=== PATIENT | female | born 1950 | race Hispanic/Latino ===

== ENCOUNTER 2018-01-28 03:01 | Observation (INO) | payer OTHER ==
[~2018-01-28] VITALS: Ht 157.5 cm; Wt 73.6 kg
[2018-01-28 04:52] VITALS: BP 130/66
[2018-01-28] MEDS ORDERED: LABETALOL 20 MG/4 ML DISP.SYRIN IV PRN (06:00)
[2018-01-28] MEDS ORDERED: NITROGLYCERIN 0.4 MG SL TAB SL PRN (06:00)
[2018-01-28] MEDS ORDERED: ACETAMINOPHEN 325 MG TAB PO PRN (06:00)
[2018-01-28] MEDS ORDERED: ONDANSETRON HCL MDV 20ML 2 MG/ML VIAL IVP PRN (06:00)
[2018-01-28] MEDS ORDERED: MORPHINE SULFATE 2 MG/ML 1ML SYG IVP PRN (06:00)
[2018-01-28] MEDS ORDERED: HYDROCODONE/ACETAMINOPHEN 5/325 MG TAB PO PRN (06:00)
[2018-01-28] MEDS ORDERED: SODIUM CHLORIDE 0.9% 1000ML 1,000 ML IV SCH (06:00)
[2018-01-28 06:49] LABS: HEMATOCRIT 36.1 % (36-48); MEAN CORPUSCULAR HGB CONC 33.2 g/dL (32.0-36.0); MEAN CORPUSCULAR VOLUME 87.5 fL (79-99); PLATELET COUNT (AUTO) 182 K/uL (130-400); RED BLOOD CELL COUNT(AUTO) 4.13 MIL/uL (4.00-5.50); RED CELL DISTRIBUTION WIDTH 13.9 % (11.0-15.5); WHITE BLOOD COUNT (AUTO) 4.6 K/uL (4.8-10.8)
[2018-01-28 07:14] LABS: CARBON DIOXIDE 29 mmol/L (21-32); CHLORIDE 107 mmol/L (101-111); CHOLESTEROL 168 mg/dL (<200); CREATINE KINASE, TOTAL 40 U/L (21-232); CREATININE 0.8 mg/dL (0.5-1.5); GLOMERULAR FILTR. RATE CALC 76 mL/min (>60); GLUCOSE,RANDOM 106 mg/dL (70-105); HDL CHOLESTEROL 58 mg/dL (35-85); LDL DIRECT 99 mg/dL (0-99); MYOGLOBIN 29 ng/mL (10-92); POTASSIUM 3.7 mmol/L (3.5-5.1); SODIUM SERUM 143 mmol/L (136-145); TRIGLYCERIDES 43 mg/dL (30-200); TROPONIN I < 0.04 ng/mL (0.00-0.06); UREA NITROGEN, BLOOD 17 mg/dL (7-18)
[2018-01-28 07:44] VITALS: BP 109/49
[2018-01-28] MEDS ORDERED: ASPIRIN 81MG TAB.CHEW PO SCH (09:00)
[2018-01-28] MEDS ORDERED: METOPROLOL TARTRATE 25 MG TAB PO SCH (09:00)
[2018-01-28 11:03] LABS: CREATINE KINASE, TOTAL 36 U/L (21-232); MYOGLOBIN 29 ng/mL (10-92); TROPONIN I < 0.04 ng/mL (0.00-0.06)
[2018-01-28 11:35] VITALS: BP 141/52
[2018-01-28] MEDS ORDERED: REGADENOSON 0.4 MG/5 ML PF SYG IVP SCH (14:45)
[2018-01-28 17:00] VITALS: BP 126/66
[2018-01-28 18:47] LABS: CREATINE KINASE, TOTAL 36 U/L (21-232); MYOGLOBIN 29 ng/mL (10-92); TROPONIN I < 0.04 ng/mL (0.00-0.06)
[2018-01-28] MEDS ORDERED: PANT40TA25 PO (18:55)
[2018-01-28] MEDS ORDERED: ATORVASTATIN CALCIUM 40 MG TABLET PO SCH (21:00)
== END 2018-01-28 19:30 | disposition home or self-care (01) ==
LOC: 2AH 04:31 → INTOOBSV 04:31
PROVIDERS: ADMIT Internal Medicine Critical Care Medicine; ATTEND Internal Medicine Critical Care Medicine
DX: I20.0 Unstable angina (principal); E11.9 Type 2 diabetes mellitus without complications; K21.9 Gastro-esophageal reflux disease without esophagitis; Z86.73 Personal history of transient ischemic attack (TIA), and cerebral infarction without residual deficits; Z90.710 Acquired absence of both cervix and uterus
CPT/HCPCS: 36415; 78452; 80048; 80061; 82550 ×3; 83874 ×3; 84484 ×3; 85027; 93005; 93017; A9500 ×2; G0378 ×16; J2785; 96374

== ENCOUNTER 2021-03-09 18:43 | Inpatient (IN) | payer OTHER ==
[~2021-03-09] VITALS: Ht 157.5 cm; Wt 75.7 kg
[~2021-03-09 18:43] MED LIST: PANT40TA54 PO
[2021-03-09 20:43] LABS: BASOPHILS % (AUTO) 1.1 % (0.0-5.0); EOSINOPHILS % (AUTO) 2.3 % (0.0-8.0); HEMATOCRIT 41.4 % (36-48); LYMPHOCYTES % (AUTO) 32.3 % (21.0-51.0); MEAN CORPUSCULAR HEMOGLOBIN 27.4 pg (27.0-33.0); MEAN CORPUSCULAR HGB CONC 31.9 g/dL (32.0-36.0); MEAN CORPUSCULAR VOLUME 86.1 fL (79-99); MONOCYTES % (AUTO) 9.8 % (3.0-13.0); NEUTROPHILS % (AUTO) 54.3 % (40.0-77.0); PLATELET COUNT (AUTO) 241 K/uL (130-400); RED BLOOD CELL COUNT(AUTO) 4.81 MIL/uL (4.00-5.50); RED CELL DISTRIBUTION WIDTH 14.6 % (11.0-15.5); WHITE BLOOD COUNT (AUTO) 5.2 K/uL (4.8-10.8)
[2021-03-09 20:54] LABS: CREATININE 0.8 mg/dL (0.5-1.5); POTASSIUM 4.1 mmol/L (3.5-5.1)
[2021-03-09 20:59] LABS: ALBUMIN 3.7 g/dL (3.5-5.0); BILIRUBIN,TOTAL 0.2 mg/dL (0.2-1.0); TOTAL PROTEIN, SERUM 7.4 g/dL (6.0-8.3)
[2021-03-09] MEDS ORDERED: SOLU-MEDROL 125MG VIAL IV ONE (22:30)
[2021-03-09] MEDS ORDERED: ONDANSETRON 4MG INJ IV PRN (22:30)
[2021-03-09] MEDS ORDERED: HYDRALAZINE 20MG/ML VIAL IV PRN (22:30)
[2021-03-09 22:41] LABS: APPEARANCE,URINE Clear (CLEAR); BILIRUBIN,URINE Negative (NEGATIVE); COLOR,URINE Yellow (YELLOW); GLUCOSE, URINE (UA) Negative (NEGATIVE); KETONES,URINE Negative (NEGATIVE); LEUKOCYTE ESTERASE ,URINE Trace (NEGATIVE); NITRATE,URINE Negative (NEGATIVE); OCCULT BLOOD,URINE Negative (NEGATIVE); PH,URINE 7.5 (5.0-8.0); PROTEIN,URINE Negative (NEGATIVE); UROBILINOGEN,URINE 0.2 mg/dL (0.2-1.0)
[2021-03-09 22:50] LABS: AMPHET/METH SCREEN,URINE NEGATIVE (NEGATIVE); BACTERIA,URINE None Seen /HPF (None Seen); BARBITURATE SCREEN, URINE NEGATIVE (NEGATIVE); BENZODIAZEPINES SCREEN,URINE NEGATIVE (NEGATIVE); CANNABINOID SCREEN,URINE NEGATIVE (NEGATIVE); COCAINE SCREEN,URINE NEGATIVE (NEGATIVE); OPIATE SCREEN,URINE NEGATIVE (NEGATIVE); PHENCYCLIDINE SCREEN,URINE NEGATIVE (NEGATIVE); RBC,URINE None Seen /HPF (0-1); SQUAMOUS EPITHELIAL CELL,UR Rare /HPF (0-2); WBC,URINE 0-1 /HPF (0-1)
[2021-03-09 22:57] LABS: INR 0.94 (0.85-1.15); PROTHROMBIN TIME 10.3 SEC (9.6-11.6)
[2021-03-09 22:58] LABS: PARTIAL THROMBOPLASTIN TIME 25.4 SEC (26.3-35.5)
[2021-03-09 22:59] LABS: CHOLESTEROL 220 mg/dL (<200); HDL CHOLESTEROL 43 mg/dL (35-85); LDL DIRECT 126 mg/dL (0-99); TRIGLYCERIDES 224 mg/dL (30-200)
[2021-03-10] MEDS ORDERED: SOLU-MEDROL 125MG VIAL ONE (00:50)
[2021-03-10] MEDS: LACTATED RINGERS 1000ML 1,000 ML IV SCH ×2 (00:53→08:30)
[2021-03-10 03:34] VITALS: BP 161/62
[2021-03-10] MEDS ORDERED: TRAM50TA4 PO (05:14)
[2021-03-10 05:28] LABS: BASOPHILS % (AUTO) 0.4 % (0.0-5.0); EOSINOPHILS % (AUTO) 0.4 % (0.0-8.0); LYMPHOCYTES % (AUTO) 12.8 % (21.0-51.0); MEAN CORPUSCULAR HEMOGLOBIN 27.5 pg (27.0-33.0); MEAN CORPUSCULAR VOLUME 83.3 fL (79-99); MONOCYTES % (AUTO) 1.6 % (3.0-13.0); NEUTROPHILS % (AUTO) 84.6 % (40.0-77.0); PLATELET COUNT (AUTO) 242 K/uL (130-400); RED CELL DISTRIBUTION WIDTH 14.2 % (11.0-15.5); WHITE BLOOD COUNT (AUTO) 5.1 K/uL (4.8-10.8)
[2021-03-10 05:42] LABS: CREATININE 0.6 mg/dL (0.5-1.5); MAGNESIUM 2.4 mg/dL (1.80-2.40); PHOSPHORUS 2.9 mg/dL (2.5-4.9); POTASSIUM 3.9 mmol/L (3.5-5.1)
[2021-03-10 08:31] VITALS: BP 146/70
[2021-03-10] MEDS ORDERED: FAMOTIDINE 20MG VIAL IV SCH (09:00)
[2021-03-10] MEDS ORDERED: ASPIRIN 81 MG EC TAB PO SCH (09:00)
[2021-03-10] MEDS: ACETAMINOPHEN 325 MG TAB PO PRN ×2 (10:18→15:43)
[2021-03-10 12:27] VITALS: BP 149/69
[2021-03-10] MEDS ORDERED: LOSARTAN/HYDROCHLOROTHIAZIDE 50-12.5MG TABLET PO ONE (13:00)
[2021-03-10] MEDS ORDERED: LOSARTAN/HYDROCHLOROTHIAZIDE 50-12.5MG TABLET PO SCH (13:15)
[2021-03-10] MEDS ORDERED: LOSARTAN 50 MG TABLET PO SCH (13:30)
[2021-03-10] MEDS ORDERED: CLOP75TA14 PO (13:31)
[2021-03-10] MEDS ORDERED: LOSA50TA2 PO (13:31)
[2021-03-10] MEDS ORDERED: ATOR40TA69 PO (13:31)
[2021-03-10 16:59] VITALS: BP 142/70
[2021-03-10] MEDS ORDERED: HYDROCODONE/ACETAMINOPHEN 5/325 MG TAB ONE (18:42)
[2021-03-10] MEDS ORDERED: HYDROCODONE/ACETAMINOPHEN 5/325 MG TAB PO PRN (19:00)
[2021-03-10] MEDS ORDERED: ATORVASTATIN 40 MG TABLET PO SCH (21:00)
[2021-03-11] MEDS ORDERED: LOSARTAN 50 MG TABLET PO SCH (09:00)
[2021-03-11] MEDS ORDERED: CLOPIDOGREL 75MG TAB PO SCH (09:00)
== END 2021-03-10 20:36 | disposition home or self-care (01) | DRG 305 ==
LOC: EDH 18:43 → EDHIP 22:22 → 4DH 03-10 01:27
PROVIDERS: ADMIT Internal Medicine; ATTEND Internal Medicine
DX: I16.0 Hypertensive urgency (principal); G45.9 Transient cerebral ischemic attack, unspecified; E78.2 Mixed hyperlipidemia; G44.209 Tension-type headache, unspecified, not intractable; H54.61 Unqualified visual loss, right eye, normal vision left eye; Z94.7 Corneal transplant status; Z86.73 Personal history of transient ischemic attack (TIA), and cerebral infarction without residual deficits; Z83.3 Family history of diabetes mellitus
CPT/HCPCS: 36415; 70450; 70551; 71045; 80048; 80053; 80061; 80305; 81001; 83735; 84100; 84484; 85025; 85610; 85651; 85730; 92522; 92610; 93880; G0378; J2405; J2930; J3490; J7120

== ENCOUNTER → 2022-01-22 | Outpatient (CLI) | payer OTHER ==
[~2022-01-22] MED LIST changes: +ATOR40TA69 PO; +CLOP75TA14 PO; +LOSA50TA2 PO; +TRAM50TA4 PO
== END | disposition home or self-care (01) ==
LOC: RAH 10:40
PROVIDERS: ATTEND Student in an Organized Health Care Education/Training Program
DX: M70.62 Trochanteric bursitis, left hip (principal); K57.90 Diverticulosis of intestine, part unspecified, without perforation or abscess without bleeding; N32.89 Other specified disorders of bladder
CPT/HCPCS: 73721

== ENCOUNTER 2023-08-23 12:46 | Emergency (ER) | payer OTHER ==
[~2023-08-23] VITALS: Ht 157.5 cm; Wt 74.8 kg
[~2023-08-23 12:46] MED LIST changes: +CLOP-31 PO; -CLOP75TA14 PO; +LOSA-418 PO; -LOSA50TA2 PO
[2023-08-23] MEDS: FAMOTIDINE 20MG VIAL IV ONE (15:11)
[2023-08-23] MEDS: LACTATED RINGERS 1000ML 1,503 ML IV ONE (15:11)
[2023-08-23] MEDS: METOCLOPRAMIDE 10 MG/2 ML VIAL IVP ONE (15:11)
[2023-08-23 15:12] LABS: BASOPHILS # (AUTO) 0.01 K/uL (0.00-0.20); BASOPHILS % (AUTO) 0.2 % (0.0-5.0); EOSINOPHILS # (AUTO) 0.03 K/uL (0.00-0.70); EOSINOPHILS % (AUTO) 0.7 % (0.0-8.0); IMMATURE GRANULOCYTE ABSOLUTE 0.02 K/uL (0-1); LYMPHOCYTES # (AUTO) 1.2 K/uL (1.0-4.8); LYMPHOCYTES % (AUTO) 25.8 % (21.0-51.0); MEAN CORPUSCULAR HEMOGLOBIN 30.9 pg (27.0-33.0); MEAN CORPUSCULAR HGB CONC 33.7 g/dL (32.0-36.0); MEAN CORPUSCULAR VOLUME 91.9 fL (79-99); MONOCYTES # (AUTO) 0.9 K/uL (0.1-1.0); MONOCYTES % (AUTO) 20.2 % (3.0-13.0); NEUTROPHILS # (AUTO) 2.4 K/uL (1.8-7.7); NEUTROPHILS % (AUTO) 52.7 % (40.0-77.0); PLATELET COUNT (AUTO) 249 K/uL (130-400); RED BLOOD CELL COUNT(AUTO) 4.46 MIL/uL (4.00-5.50); RED CELL DISTRIBUTION WIDTH 12.9 % (11.0-15.5); WHITE BLOOD COUNT (AUTO) 4.5 K/uL (4.8-10.8)
[2023-08-23 15:32] LABS: RAPID GROUP A STREP negative (NEGATIVE)
[2023-08-23 15:35] LABS: APPEARANCE,URINE CLEAR (CLEAR); BILIRUBIN,URINE NEGATIVE (NEGATIVE); GLUCOSE, URINE (UA) NEGATIVE (NEGATIVE); KETONES,URINE NEGATIVE (NEGATIVE); LEUKOCYTE ESTERASE ,URINE NEGATIVE Leu/uL (NEGATIVE); NITRATE,URINE NEGATIVE (NEGATIVE); OCCULT BLOOD,URINE NEGATIVE (NEGATIVE); PROTEIN,URINE NEGATIVE (NEGATIVE); UROBILINOGEN,URINE 0.2 mg/dL (0.2-1.0)
[2023-08-23 15:40] LABS: CREATININE 0.8 mg/dL (0.5-1.0); POTASSIUM 3.6 mmol/L (3.5-5.1)
[2023-08-23 15:41] LABS: COLOR,URINE LIGHT-YELLOW (YELLOW)
[2023-08-23 15:41] LABS: COVID19 (SARS ANTIGEN RAPID) PRESUMPTIVE NEGATIVE (NEGATIVE); INFLUENZA TYPE A Negative For Type A (NEGATIVE); INFLUENZA TYPE B Negative For Type B (NEGATIVE)
[2023-08-23 15:42] LABS: ADD UA MICROSCOPIC NO
[2023-08-23 15:52] LABS: ALBUMIN 3.2 g/dL (3.5-5.0); BILIRUBIN,TOTAL 0.5 mg/dL (0.2-1.0); THYROID STIMULATING HORMONE 1.44 uIU/mL (0.36-3.74)
[2023-08-23] MEDS: METRONIDAZOLE 500MG/100ML BAG IV ONE (15:53)
[2023-08-23] MEDS ORDERED: ONDA4TAB10 PO (17:47)
[2023-08-23] MEDS ORDERED: METR-172 PO (17:47)
[2023-08-23 17:51] VITALS: BP 149/78; PULSE 76; RESP 20; O2SAT 98
[2023-08-23] MEDS ORDERED: METRONIDAZOLE 500MG/100ML BAG 100 ML IVPB SCH (22:00)
== END 2023-08-23 18:19 | disposition home or self-care (01) ==
LOC: EDH 12:46
DX: K52.9 Noninfective gastroenteritis and colitis, unspecified (principal); K21.9 Gastro-esophageal reflux disease without esophagitis; Z20.822 Contact with and (suspected) exposure to COVID-19; Z79.899 Other long term (current) drug therapy; Z98.890 Other specified postprocedural states; Z90.710 Acquired absence of both cervix and uterus
CPT/HCPCS: 84443; 82550; 83735; 80053; 83690; 85025; 87880; 87420; 87804 ×2; 83605; 87426; 81003; 36415; 96374; 99283; 96361; 96375; J7120; J3490 ×2; J2765

== ENCOUNTER → 2024-01-20 | Outpatient (CLI) | payer OTHER ==
[~2024-01-20] MED LIST changes: +METR-172 PO; +ONDA-243 PO
== END | disposition home or self-care (01) ==
LOC: SHCH 13:33
PROVIDERS: ATTEND Internal Medicine
DX: R94.31 Abnormal electrocardiogram [ECG] [EKG] (principal); R07.9 Chest pain, unspecified
CPT/HCPCS: 93306

== ENCOUNTER → 2024-02-07 | Outpatient (CLI) | payer OTHER ==
[2024-02-07] MEDS: REGADENOSON 0.4 MG/5 ML PF SYG IVP ONE (11:16)
== END | disposition home or self-care (01) ==
LOC: SHCH 08:28
PROVIDERS: ATTEND Internal Medicine
DX: R94.31 Abnormal electrocardiogram [ECG] [EKG] (principal); R07.9 Chest pain, unspecified
CPT/HCPCS: 78452; 93017; J2785; A9500 ×2

== ENCOUNTER → 2025-04-19 | Outpatient (CLI) | payer OTHER ==
[~2025-04-19] MED LIST changes: -ATOR40TA69 PO; -CLOP-31 PO; -LOSA-418 PO; -METR-172 PO; -ONDA-243 PO; -PANT40TA54 PO; +PERFLUTREN PROTEIN-A MICROSPHR 0.22 MG/ML VIAL IV ONE; -TRAM50TA4 PO
== END | disposition home or self-care (01) ==
LOC: RAH 14:12
PROVIDERS: ATTEND Internal Medicine
DX: Z01.810 Encounter for preprocedural cardiovascular examination (principal); I08.2 Rheumatic disorders of both aortic and tricuspid valves; I25.10 Atherosclerotic heart disease of native coronary artery without angina pectoris
CPT/HCPCS: C8929; Q9956